=== PATIENT | male | born 2005 | race Hispanic/Latino ===

== ENCOUNTER 2025-05-09 23:44 | Emergency (ER) | payer BC, MEDICAID, OTHER ==
[2025-05-10 00:04] LABS: Hematocrit 47.1 % (42.0-52.0); Hemoglobin 15.9 g/dL (14.0-18.0); Mean Corpuscular Hemoglobin 33.7 pg (25.0-35.0); Mean Corpuscular Volume 99.8 fL (78.0-98.0); Platelet Count 232 10x3/uL (130-400); Red Blood Cell (RBC) Count 4.72 mill/uL (4.00-5.20); White Blood Cell (WBC) Count 8.95 10x3/uL (4.8-10.8)
[2025-05-10 00:10] LABS: Glucose, Urine (Dipstick) 100 mg/dL (Negative); Leukocyte Trace (Negative); Protein, Urine (Dipstick) > or equal to 300 mg/dL (Neg-Trace); Specific Gravity, Urine 1.025 (1.005-1.030)
[2025-05-10 00:13] LABS: RBC/HPF Greater than 50 HPF (0-3)
[2025-05-10 00:14] LABS: CAUTI Indications for Culture Acute Hematuria; Urine Culture Reflex No No
[2025-05-10 00:16] LABS: ALT (SGPT) 28 U/L (Less than 45); AST (SGOT) 25 U/L (11-34); Albumin 4.8 g/dL (3.1-4.5); Alkaline Phosphatase 87 U/L (50-130); Anion Gap 17 mmol/L (10-20); BUN (Urea Nitrogen) 19 mg/dL (8.4-21.0); Bilirubin, Total 2.7 mg/dL (0.3-1.2); Calc. Creatinine Clearance 0 mL/min (70-130); Calcium 10.2 mg/dL (7.8-10.44); Carbon Dioxide 20 mmol/L (22-29); Chloride 102 mmol/L (98-107); Globulin 2.8 g/dL (2.4-3.5); Glucose 104 mg/dL (70-105); Lipase 18 U/L (8-78); Potassium 4.0 mmol/L (3.5-5.1); Sodium 135 mmol/L (136-145)
[2025-05-10 00:28] LABS: Anisocytosis SLIGHT = 6-15 cells HPF (0-5); Platelet Adequacy Comment Platelets Normal
[2025-05-10 00:53] LABS: INR-International Normal Ratio 1.3; PTT 38.1 sec (22.9-36.1); Prothrombin Time 16.5 sec (12.0-14.7)
[2025-05-10 06:40] LABS: Chlam.trachomatis by PCR,Urine *Indeterminate (NotDetected); GC N.gonorrhoeae PCR,UrineVOID *Indeterminate (NotDetected)
== END 2025-05-10 03:07 | disposition home or self-care (01) ==
LOC: ERS 23:44
DX: R31.9 Hematuria, unspecified (principal); E80.7 Disorder of bilirubin metabolism, unspecified; R80.9 Proteinuria, unspecified
CPT/HCPCS: 36415; 74176; 80053; 81001; 82550; 83690; 85025; 85610; 85730; 87086; 87491; 87591